=== PATIENT | male | born 1955 | race Caucasian/White ===

== ENCOUNTER 2019-02-05 09:13 | Emergency (ER) | payer MEDICARE, OTHER ==
[2019-02-05] MEDS ORDERED: Benzocaine 20% Spray 60 ML CAN ONE (09:46)
[2019-02-05] MEDS ORDERED: Lidocaine Viscous Sol 2% 15 ml UD Cup ONE (09:49)
[2019-02-05] MEDS ORDERED: Oxymetazoline HCl 0.05% ( 15 ML ) ONE (09:51)
[2019-02-05 10:04] LABS: #Basophils 0.1 thou/uL (0.0-0.2); #Eosinphils 0.2 thou/uL (0.0-0.7); #Monocytes 0.6 thou/uL (0.11-0.59); %Basophils 1.3 % (0.0-1.0); %Eosinophils 1.7 % (0.0-10.0); %Lymphocytes 18.1 % (21.0-51.0); %Monocytes 5.3 % (0.0-10.0); %Neutrophils 73.6 % (42.0-75.0); Hemoglobin 17.8 g/dL (14.0-18.0); Mean Corpuscular Hemoglobin 27.8 pg (27.0-31.0); Mean Platelet Volume 7.3 fL (7.4-10.4); Platelet Count 239 thou/uL (130-400); RBC Distribution Width 14.8 % (11.5-14.5); White Blood Cell (WBC) Count 10.8 thou/uL (4.8-10.8)
[2019-02-05 10:09] LABS: INR-International Normal Ratio 1.1; PTT 30.7 SEC (22.9-36.1); Prothrombin Time 14.5 SEC (12.0-14.7)
[2019-02-05 10:18] LABS: ALT (SGPT) 30 U/L (8-55); AST (SGOT) 37 U/L (5-34); Albumin 4.7 g/dL (3.4-4.8); Alkaline Phosphatase 73 U/L (40-150); Anion Gap 16 mmol/L (10-20); BUN (Urea Nitrogen) 12 mg/dL (8.4-25.7); Bilirubin, Total 0.7 mg/dL (0.2-1.2); Calc. Creatinine Clearance 0 mL/min (70-130); Calcium 10.5 mg/dL (7.8-10.44); Carbon Dioxide 26 mmol/L (23-31); Chloride 100 mmol/L (98-107); Estimated GFR-MDRD 86; Globulin 3.3 g/dL (2.4-3.5); Glucose 108 mg/dL (80-115); Potassium 3.8 mmol/L (3.5-5.1); Sodium 138 mmol/L (136-145)
[2019-02-05 10:44] LABS: CK (CPK) 253 U/L (30-200); Lipase 42 U/L (8-78)
[2019-02-05] MEDS ORDERED: Ondansetron PF 4 MG/2 ML Vial ONE (10:46)
[2019-02-05] MEDS ORDERED: Pantoprazole 40 MG VIAL ONE (10:59)
== END 2019-02-05 12:23 | disposition short-term general hospital (02) ==
LOC: NAV ERS 09:13
DX: K29.71 Gastritis, unspecified, with bleeding (principal); E11.9 Type 2 diabetes mellitus without complications; E03.9 Hypothyroidism, unspecified; K21.9 Gastro-esophageal reflux disease without esophagitis; I10 Essential (primary) hypertension; J45.909 Unspecified asthma, uncomplicated; F41.9 Anxiety disorder, unspecified; F17.210 Nicotine dependence, cigarettes, uncomplicated; Z79.82 Long term (current) use of aspirin; Z79.899 Other long term (current) drug therapy
CPT/HCPCS: 80053; 82271; 82550; 83690; 84484; 85025; 85610; 85730; 93005; 96374; 96375; C9113; J2405